=== PATIENT | female | born 1955 | race Caucasian/White ===

== ENCOUNTER 2023-05-25 13:59 | Outpatient (RCR) | payer MEDICARE, SELFPAY | END 2023-05-25 17:00 | disposition home or self-care (01) | LOC: HO.WCC 13:59 | PROVIDERS: PCP Pediatrics; Visit Provider Surgery | DX: Z09 Encounter for follow-up examination after completed treatment for conditions other than malignant neoplasm (principal); L03.115 Cellulitis of right lower limb; E11.9 Type 2 diabetes mellitus without complications; I11.0 Hypertensive heart disease with heart failure; I50.9 Heart failure, unspecified; Z79.84 Long term (current) use of oral hypoglycemic drugs; Z95.0 Presence of cardiac pacemaker; Z87.2 Personal history of diseases of the skin and subcutaneous tissue | CPT/HCPCS: 99212 ==